=== PATIENT | male | born 1995 | race Caucasian/White ===

== ENCOUNTER 2021-09-05 16:12 | Emergency (ER) | payer BC ==
[2021-09-05 17:03] VITALS: BP 165/119; PULSE 67
--- NOTE | 2021-09-05 17:12 | EDM.PDOC ---
ED HPI GENERAL MEDICAL PROBLEM - General Chief Complaint: Headache Stated Complaint: POSSIBLE CO EXPOSURE Time Seen by Provider: 09/05/21 17:03 Source of Information: Reports: Patient, RN Notes Reviewed History Limitations: Reports: No Limitations - History of Present Illness INITIAL COMMENTS - FREE TEXT/NARRATIVE: Patient is a 26-year-old male who presents to the ER for his possible carbon monoxide exposure. States he was at work yesterday, working on a generator for about 45 minutes, but does state that he was outside. He states after that he had a slight generalized headache, nausea but no vomiting. States that he awoke this morning again with a headache, and it seems to not be getting much better throughout the day. He took 1 dose of Advil this morning, and again states that this did not seem to help much. States he has had mild cold-like symptoms for the past few days as well, scratchy throat, generalized headache, and body aches. He was told to come to the ER for evaluation of his possible carbon monoxide exposure. No discernible fevers or chills, cough or shortness of breath. States again that he was nauseated but has no vomiting, no diarrhea. Headache Pain Score (Numeric/FACES): 6 - Related Data Allergies Allergy/AdvReac Type Severity Reaction Status Date / Time No Known Allergies Allergy Verified 09/05/21 17:02 Home Meds: Home Meds . [No Known Home Meds] 10/07/16 [History] Past Medical History - Past Surgical History HEENT Surgical History: Reports: Other (See Below) Other HEENT Surgeries/Procedures: Ruler removed from back of throat Social & Family History - Family History Family Medical History: No Pertinent Family History - Tobacco Use Tobacco Use Status *Q: Never Tobacco User - Caffeine Use Caffeine Use: Reports: Coffee - Recreational Drug Use Recreational Drug Use: No ED ROS GENERAL - Review of Systems Review Of Systems: Comprehensive ROS is negative, except as noted in HPI. ED EXAM, GENERAL - Physical Exam Exam: See Below Exam Limited By: No Limitations General Appearance: Alert, WD/WN, No Apparent Distress Respiratory/Chest: No Respiratory Distress, Lungs Clear, Normal Breath Sounds, No Accessory Muscle Use, Chest Non-Tender Cardiovascular: Normal Peripheral Pulses, Regular Rate, Rhythm, No Edema GI/Abdominal: Normal Bowel Sounds, Soft, Non-Tender, No Distention, No Mass Extremities: Normal Inspection, Normal Capillary Refill Neurological: Alert, Oriented, Normal Cognition, No Motor/Sensory Deficits Psychiatric: Normal Affect, Normal Mood Skin Exam: Warm, Dry, Intact, Normal Color, No Rash Course - Vital Signs Last Recorded V/S: Last Vital Signs Temp 97.4 F 09/05/21 17:00 Pulse 67 09/05/21 17:00 Resp 16 09/05/21 17:00 BP 165/119 H 09/05/21 17:00 Pulse Ox 97 09/05/21 17:00 - Orders/Labs/Meds Labs: Laboratory Tests 09/05/21 09/05/21 Range/Units 17:03 17:06 ABG Hemoglobin 14.3 (12.0-18.0) g/L ABG Oxyhemoglobin 94.7 ABG Carboxyhemoglobin 1.5 (0.00-1.50) %THgb ABG Methemoglobin 1.0 (0.00-1.5) % O2 Delivery Device Room air Influenza Type A RNA Negative (NEGATIVE) RSV RNA ([facility]) Negative (NEGATIVE) Influenza Type B RNA Negative (NEGATIVE) SARS-CoV-2 RNA ([facility]ERSON) Negative (NEGATIVE) - Re-Assessments/Exams Free Text/Narrative Re-Assessment/Exam: 09/05/21 17:11 Patient presents to the ER for evaluation of his possible carbon monoxide exposure. We will go ahead and do a coox for initial management. Since this happened last night, and all he is mainly complaining about is a headache today, highly likely that levels will likely be within normal limits. We will go ahead do a Covid/flu/RSV screen as well due to his ongoing cold-like symptoms. 09/05/21 18:27 Patient's coox was within normal limits. COVID/flu/RSV screen were negative for today's purposes. We will have the patient continue to try to use some Tylenol and ibuprofen and follow-up in clinic if not much better. Departure - Departure Time of Disposition: 18:28 Disposition: Home, Self-Care 01 Condition: Good Clinical Impression: Viral URI Headache Qualifiers: Headache type: unspecified Headache chronicity pattern: acute headache Intractability: not intractable Qualified Code(s): R51.9 - Headache, unspecified - Discharge Information *PRESCRIPTION DRUG MONITORING PROGRAM REVIEWED*: No *COPY OF PRESCRIPTION DRUG MONITORING REPORT IN PATIENT FOZIA: No Instructions: General Headache Without Cause, [id number], Viral Respiratory Infection, [id number] Referrals: PCP,None [Primary Care Provider] - Forms: ED Department Discharge Additional Instructions: You have been evaluated in the ED today for your headache and cold like symptoms along with possible carbon monoxide exposure. This is likely a viral illness in etiology. Your COVID/flu/RSV screen were negative for today's purposes. Your test for carbon monoxide exposure came back within normal limits. Please increase your fluid intake. Get plenty of rest as well. You should feel better in a few days. As with any illness, please try to limit your exposure to others to help mitigate the spread of germs. Please also remember to wash your hands after you cough/sneeze. Please try to limit touching your face, and then touching other surfaces. Recommend that you take some [id number] nasal decongestants, cough/cold remedies to combat this. You may take 500mg Tylenol (acetaminophen) or 600mg Advil/Motrin (ibuprofen) every 6 hours as needed for further pain/fever relief. Do not exceed 4000 mg Tylenol or 3200 mg ibuprofen in a 24-hour time span. If you have high blood pressure, medications like Coricidin would be adequate to us e. If your symptoms are not better in one week's time recommend that you follow up in a clinic or your primary care provider. Our [facility] clinic number is [phone], the [place] [facility] is [phone]. Any family practice provider would be able to provide you with the services. Please return to the ED if your symptoms change or worsen. Sepsis Event Note (ED) - Evaluation Sepsis Screening Result: No Definite Risk - Focused Exam Vital Signs: Vital Signs Temp Pulse Resp BP Pulse Ox 09/05/21 17:00 97.4 F 67 16 165/119 H 97
[2021-09-05 17:54] LABS: CORONAVIRUS COVID-19 NAA NEGATIVE (NEGATIVE)
== END 2021-09-05 18:48 | disposition home or self-care (01) ==
LOC: JD.ED 16:12
DX: R51.9 Headache, unspecified (principal); J06.9 Acute upper respiratory infection, unspecified; Z20.822 Contact with and (suspected) exposure to COVID-19
CPT/HCPCS: 0241U; 36600; 82803; 99283